=== PATIENT | male | born 1965 | race African-American/Black ===

== ENCOUNTER 2017-07-27 13:21 | Emergency (ER) | payer SELFPAY ==
[~2017-07-27] VITALS: Ht 170.2 cm; Wt 99.3 kg
[2017-07-27 13:28] VITALS: BP 137/92
--- NOTE | 2017-07-27 13:34 | NUR ---
PT ASKED FOR BLOOD SUGAR TO BE CHECKED---NON DIABETIC FINGER STICK AT THIS TIME 143; ADMITS HAD DRANK A GATORADE AND ATE 2 SLICES OF PIZZA
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
--- NOTE | 2017-07-27 15:38 | NUR ---
Patient being evaluated by DR HODGE at bedside.
[2017-07-27] MEDS ORDERED: NACL 0.9% 1,000 ML IV ONE (15:50)
[2017-07-27 16:34] LABS: BASOPHILS # (AUTO) 0.4 K/uL (0.00-0.22); EOSINOPHILS # (AUTO) 0.2 K/uL (0-0.4); HEMOGLOBIN 15.9 g/dL (12.0-18.0); LYMPHOCYTES # (AUTO) 3.2 K/uL (2.0-11.5); MEAN CORPUSCULAR HEMOGLOBIN 30 pg (27-31); MEAN CORPUSCULAR HGB CONC 34 g/dL (33-37); MEAN CORPUSCULAR VOLUME 87 fL (80-94); MONOCYTES # (AUTO) 0.8 K/uL (0.8-1.0); NEUTROPHILS # (AUTO) 2.8 K/uL (1.8-7.7); PLATELET COUNT (AUTO) 212 K/uL (140-450); RED BLOOD CELL COUNT(AUTO) 5.39 MIL/uL (4.20-6.10); RED CELL DISTRIBUTION WIDTH 11.2 % (11.6-13.7); WHITE BLOOD COUNT (AUTO) 7.4 K/uL (4.8-10.8)
[2017-07-27 17:05] LABS: ALBUMIN 3.9 g/dL (3.4-5.0); ANION GAP 12.9 (8-16); CREATININE 1.3 mg/dL (0.7-1.3); POTASSIUM 3.9 mmol/L (3.5-5.1); TOTAL BILIRUBIN 0.4 mg/dL (0.0-1.0)
[2017-07-27 17:53] VITALS: BP 143/96
--- NOTE | 2017-07-27 17:53 | NUR ---
Patient discharged with BP 143/96; DENIES HEADACHE AT THIS TIME. Written and verbal after care instructions given and explained. Patient verbalized understanding. Ambulatory with steady gait. All questions addressed prior to discharge. Advised to follow up with PMD.
== END 2017-07-27 17:53 | disposition home or self-care (01) ==
LOC: MED 13:21
DX: T88.1XXA Other complications following immunization, not elsewhere classified, initial encounter (principal); G62.9 Polyneuropathy, unspecified; R42 Dizziness and giddiness; I10 Essential (primary) hypertension; Y92.89 Other specified places as the place of occurrence of the external cause
CPT/HCPCS: 36415; 70450; 71045; 80053; 82948; 84484; 85025; 93005; 96360; 99285; J7030

== ENCOUNTER 2018-12-09 15:03 | Emergency (ER) | payer SELFPAY ==
[~2018-12-09] VITALS: Ht 175.3 cm; Wt 101.6 kg
--- NOTE | 2018-12-09 15:30 | NUR ---
PT PROVIDED URINE SAMPLE, AMBULATORY TO SOPHIA POPE.
[2018-12-09 15:32] VITALS: BP 148/90
--- NOTE | 2018-12-09 16:05 | NUR ---
Patient ambulated to bed 10. RN evaluating patient at bedside.
--- NOTE | 2018-12-09 16:30 | NUR ---
C/O R ELBOW PAIN STARTING TODAY. PT DENIES N/V/FEVER, RECENT INJURY, ITCHINESS, ETC. PT STATES HE WOKE UP THIS MORNING AND NOTICED THE BUMP ON HIS ARM. BED IN LOW POSITION, SIDE RAIL UP X 1.
[2018-12-09] MEDS ORDERED: KETOROLAC 60 MG/2 ML VIAL IM ONE (18:40)
[2018-12-09 19:14] VITALS: BP 140/85
--- NOTE | 2018-12-09 19:15 | NUR ---
Patient discharged with v/s stable. Written and verbal after care instructions given and explained. Patient alert, oriented and verbalized understanding of instructions. Ambulatory with steady gait. All questions addressed prior to discharge. ID band removed. Patient advised to follow up with PMD. Rx of NORCO & IBUPROFEN given. Patient educated on indication of medication including possible reaction and side effects. Opportunity to ask questions provided and answered.
== END 2018-12-09 19:15 | disposition home or self-care (01) ==
LOC: MED 15:03
DX: M79.601 Pain in right arm (principal); I10 Essential (primary) hypertension
CPT/HCPCS: 81002; 96372; 99283; J1885

== ENCOUNTER 2021-07-19 12:58 | Inpatient (IN) | payer MEDICAID, SELFPAY ==
[~2021-07-19] VITALS: Ht 175.3 cm; Wt 103.0 kg
[2021-07-19 13:09] VITALS: BP 137/108
--- NOTE | 2021-07-19 13:13 | NUR ---
PT SENT TO LOBBY
[2021-07-19 14:38] LABS: BASOPHILS % (AUTO) 0.6 % (0.0-2.0); EOSINOPHILS # (AUTO) 0.1 K/uL (0-0.4); EOSINOPHILS % (AUTO) 1.1 % (0.0-4.0); HEMATOCRIT 41.4 % (36-52); HEMOGLOBIN 14.5 g/dL (12.0-18.0); LYMPHOCYTES % (AUTO) 46.1 % (20.5-51.1); MEAN CORPUSCULAR HEMOGLOBIN 31 pg (27-31); MEAN CORPUSCULAR HGB CONC 35 g/dL (33-37); MEAN CORPUSCULAR VOLUME 88.2 fL (80-94); MONOCYTES # (AUTO) 0.5 K/uL (0.8-1.0); MONOCYTES % (AUTO) 8.1 % (1.7-9.3); NEUTROPHILS # (AUTO) 2.8 K/uL (1.8-7.7); NEUTROPHILS % (AUTO) 44.1 % (42.2-75.2); PLATELET COUNT (AUTO) 225 K/uL (140-450); RED CELL DISTRIBUTION WIDTH 12.8 % (11.6-13.7); WHITE BLOOD COUNT (AUTO) 6.4 K/uL (4.8-10.8)
[2021-07-19 15:14] LABS: ALBUMIN 4.4 g/dL (3.4-5.0); ANION GAP 14.7 (8-16); CARBON DIOXIDE 28.8 mmol/L (21-32); CREATININE 1.3 mg/dL (0.6-1.3); POTASSIUM 3.5 mmol/L (3.5-5.1); TOTAL BILIRUBIN 0.5 mg/dL (0.0-1.0)
--- NOTE | 2021-07-19 18:37 | NUR ---
PT TAKEN TO [facility].
--- NOTE | 2021-07-19 18:53 | NUR ---
20 G IV ESTABLISHED TO R AC. CONSENT SIGNED FOR CT SCAN. TECH MADE AWARE
--- NOTE | 2021-07-19 19:41 | NUR ---
REPORT GIVEN TO HEYDI SCHILLING, TRANSFER OF CARE AT THIS TIME.
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
[2021-07-19] MEDS: NACL 0.9% 1,000 ML IV SCH (23:41)
[2021-07-19] MEDS: PANTOPRAZOLE 40 MG INJ VIAL IVP SCH (23:42)
--- NOTE | 2021-07-20 01:00 | NUR ---
RESTING IN BED WITH EYES CLOSED. RESPIRATIONS REGULAR AND UNLABORED
--- NOTE | 2021-07-20 05:00 | NUR ---
CONTINUES TO REST QUIETLY. HAS BEEN VOIDING PER URINAL.
--- NOTE | 2021-07-20 07:18 | NUR ---
PATIENT HAS BEEN SCREENED AND CATEGORIZED MODERATE NUTRITION RISK. PATIENT WILL BE SEEN WITHIN 3-5 DAYS OF ADMISSION. 07/23/21-07/25/21 JAN ORTIZ MS, RDN
--- NOTE | 2021-07-20 07:30 | NUR ---
REPORT RECEIVED FROM TONIE KINSEY FOR PATIENT CONTINUITY OF CARE.
--- NOTE | 2021-07-20 07:40 | NUR ---
DR CASTILLO EVALUATING PATIENT AT BEDSIDE
[2021-07-20] MEDS: NACL 0.9% 1,000 ML IV SCH ×3 (07:50→22:50)
--- NOTE | 2021-07-20 08:00 | NUR ---
LAB AT PATIENT BEDSIDE
--- NOTE | 2021-07-20 08:03 | NUR ---
PATIENT GIVEN GOWN AND CLEAN BLANKET, CONNECTED TO BEDSIDE MONITOR.
[2021-07-20 08:34] LABS: BASOPHILS % (AUTO) 0.4 % (0.0-2.0); EOSINOPHILS # (AUTO) 0.1 K/uL (0-0.4); EOSINOPHILS % (AUTO) 1.7 % (0.0-4.0); HEMATOCRIT 39.5 % (36-52); HEMOGLOBIN 13.7 g/dL (12.0-18.0); LYMPHOCYTES # (AUTO) 2.5 K/uL (2.0-11.5); LYMPHOCYTES % (AUTO) 48.8 % (20.5-51.1); MEAN CORPUSCULAR HEMOGLOBIN 31 pg (27-31); MEAN CORPUSCULAR HGB CONC 35 g/dL (33-37); MEAN CORPUSCULAR VOLUME 88.4 fL (80-94); MONOCYTES # (AUTO) 0.5 K/uL (0.8-1.0); MONOCYTES % (AUTO) 8.9 % (1.7-9.3); NEUTROPHILS # (AUTO) 2.1 K/uL (1.8-7.7); NEUTROPHILS % (AUTO) 40.2 % (42.2-75.2); PLATELET COUNT (AUTO) 209 K/uL (140-450); RED BLOOD CELL COUNT(AUTO) 4.47 MIL/uL (4.20-6.10); RED CELL DISTRIBUTION WIDTH 12.8 % (11.6-13.7); WHITE BLOOD COUNT (AUTO) 5.2 K/uL (4.8-10.8)
--- NOTE | 2021-07-20 08:46 | NUR ---
PATIENT REQUESTING BREAKFAST, INFORMED OF NPO STATUS. BREAKFAST NOT GIVEN AT THIS TIME.
[2021-07-20 08:51] LABS: ANION GAP 12.6 (8-16); CARBON DIOXIDE 28.1 mmol/L (21-32); CREATININE 1.1 mg/dL (0.6-1.3); POTASSIUM 3.7 mmol/L (3.5-5.1)
--- NOTE | 2021-07-20 08:55 | NUR ---
VERBAL CONSENT FROM PATIENT RECEIVED TO SPEAK TO DAUGHTER CHIO FOR AN UPDATE.
[2021-07-20] MEDS: SENNA 8.6 MG TAB PO SCH ×3 (09:48→17:00)
[2021-07-20] MEDS: POLYETHYLENE GLYCOL 17 GM/PKT PO SCH ×4 (09:48→21:00)
[2021-07-20] MEDS: PANTOPRAZOLE 40 MG INJ VIAL IVP SCH ×2 (09:53→21:00)
--- NOTE | 2021-07-20 10:27 | NUR ---
PATIENT RESTING IN BED. NO DISTRESS NOTED, VSS, RESPIRATIONS EVEN AND UNLABORED. SAFETY PRECAUTIONS PUT INTO PLACE, WILL CONTINUE TO MONITOR.
--- NOTE | 2021-07-20 11:31 | NUR ---
DR. LACY EVALUATING PATIENT AT BEDSIDE
[2021-07-20] MEDS ORDERED: HYDROcodone/APAP 5/325 MG 1 TAB TAB PO PRN (12:15)
[2021-07-20] MEDS ORDERED: ONDANSETRON 4 MG/2 ML VIAL IM/IVP PRN (12:15)
[2021-07-20] MEDS ORDERED: ACETAMINOPHEN 325 MG TAB PO PRN (12:15)
[2021-07-20] MEDS ORDERED: POTASSIUM CHLORIDE 10 MEQ TABER PO PRN (12:15)
[2021-07-20] MEDS ORDERED: LORazepam 2 MG/ML VIAL IM/IVP PRN (12:15)
[2021-07-20] MEDS ORDERED: ZOLPIDEM 5 MG TAB PO PRN (12:15)
[2021-07-20] MEDS ORDERED: MORPHINE SULFATE 2 MG/ML SYR IVP PRN (12:15)
[2021-07-20] MEDS ORDERED: DOCUSATE SODIUM 100 MG GELCAP PO PRN (12:15)
[2021-07-20] MEDS ORDERED: MAG SULF 2000 MG/WATER PREMIX 50 ML IV PRN (12:15)
[2021-07-20] MEDS: LACTULOSE 20 GM/30 ML UDC PO SCH ×2 (12:45→18:00)
--- NOTE | 2021-07-20 12:49 | NUR ---
PATIENT AMBULATED TO RESTROOM WITH STEADY GAIT.
--- NOTE | 2021-07-20 12:55 | NUR ---
PATIENT AMBULATED WITH STEADY GAIT TO ROOM, PATIENT REPORTS UNABLE TO PASS A BM AT THIS TIME.
--- NOTE | 2021-07-20 13:10 | NUR ---
EMT SHAVING PATIENT'S CHEST HAIR, AUTO JOB ESTIMATOR LEADS UNABLE TO STICK TO PATIENT. RECONNECTED TO BEDSIDE MONITOR
[2021-07-20] MEDS ORDERED: SUPREP BOWEL PREP KIT 354 ML SOLN.RECON PO SCH (14:00)
[2021-07-20] MEDS ORDERED: SUPREP BOWEL PREP KIT 354 ML SOLN.RECON PO ONE (14:00)
--- NOTE | 2021-07-20 15:44 | NUR ---
LAB AT PATIENT BEDSIDE
--- NOTE | 2021-07-20 16:10 | NUR ---
PATIENT AMBULATED TO RESTROOM WITH STEADY GAIT.
[2021-07-20 16:14] LABS: PROTHROMBIN TIME 10.4 secs (10.8-13.4)
[2021-07-20 16:27] LABS: CHOL/HDL RATIO 5.5 (1-4.5); MAGNESIUM 2.1 mg/dL (1.8-2.4); PHOSPHORUS 3.4 mg/dL (2.5-4.9); THYROID STIMULATING HORMONE 0.71 uIU/mL (0.34-3.74)
--- NOTE | 2021-07-20 18:40 | NUR ---
Patient will be admitted to care of DR. LACY. Admited to TELEMETRY. Will go to room 111A. Belongings list completed. Report to TONIE ESTRADA.
--- NOTE | 2021-07-20 18:45 | NUR ---
PATIENT ARRIVED FROM ER. ABLE TO AMBULATE. AAOX4, CALM, COOPERATIVE, ON ROOM AIR. IV SITE INTACT, PATENT. REVIEWED PLAN OF CARE WITH PATIENT. VERBALIZED UNDERSTANDING. SAFETY MEASURES IN PLACE, CALL LIGHT WITHIN REACH. WILL CONTINUE TO MONITOR.
--- NOTE | 2021-07-20 19:14 | NUR ---
GAVE REPORT TO SUMAC TANNER NURSE FOR CONTINUITY OF CARE. PATIENT IN STABLE CONDITION.
[2021-07-21] MEDS: LACTULOSE 20 GM/30 ML UDC PO SCH ×3 (00:56→12:00)
[2021-07-21] MEDS: NACL 0.9% 1,000 ML IV SCH ×2 (06:34→14:35)
[2021-07-21 07:29] LABS: ANION GAP 12.3 (8-16); CARBON DIOXIDE 30.6 mmol/L (21-32); CREATININE 1.2 mg/dL (0.6-1.3); POTASSIUM 3.9 mmol/L (3.5-5.1)
--- NOTE | 2021-07-21 07:30 | NUR ---
RECEIVED REPORT FROM DOMESTIC TRAVEL CONSULTANT NURSE FOR CONTINUITY OF CARE, POC DISCUSSED. PT IS ASLEEP IN BED WITH NO ACUTE S/S OF DISTRESS. PT HAS A RIGHT AC 20G RUNNING 120. PT HAS COMPLETED BOWEL PREP, DOMESTIC TRAVEL CONSULTANT REPORTS CLEAR LIQUID STOOL. PT ON ROOM AIR ON TELE MONITOR. ALL SAFETY MEASURES IN PLACE, CALL LIGHT WITHIN REACH, WILL CONTINUE TO MONITOR.
[2021-07-21 07:31] LABS: BASOPHILS % (AUTO) 0.6 % (0.0-2.0); EOSINOPHILS # (AUTO) 0.1 K/uL (0-0.4); EOSINOPHILS % (AUTO) 1.3 % (0.0-4.0); HEMOGLOBIN 12.8 g/dL (12.0-18.0); LYMPHOCYTES # (AUTO) 2.7 K/uL (2.0-11.5); MEAN CORPUSCULAR HEMOGLOBIN 31 pg (27-31); MEAN CORPUSCULAR HGB CONC 35 g/dL (33-37); MEAN CORPUSCULAR VOLUME 88.9 fL (80-94); MONOCYTES # (AUTO) 0.4 K/uL (0.8-1.0); MONOCYTES % (AUTO) 8.4 % (1.7-9.3); NEUTROPHILS % (AUTO) 38.7 % (42.2-75.2); PLATELET COUNT (AUTO) 205 K/uL (140-450); RED BLOOD CELL COUNT(AUTO) 4.16 MIL/uL (4.20-6.10); RED CELL DISTRIBUTION WIDTH 12.6 % (11.6-13.7); WHITE BLOOD COUNT (AUTO) 5.3 K/uL (4.8-10.8)
[2021-07-21 07:42] LABS: MAGNESIUM 2.1 mg/dL (1.8-2.4); PHOSPHORUS 3.8 mg/dL (2.5-4.9)
[2021-07-21 08:00] VITALS: BP 117/80
[2021-07-21] MEDS: SENNA 8.6 MG TAB PO SCH ×2 (09:12→13:45)
[2021-07-21] MEDS: POLYETHYLENE GLYCOL 17 GM/PKT PO SCH ×2 (09:12→13:45)
[2021-07-21] MEDS: PANTOPRAZOLE 40 MG INJ VIAL IVP SCH (09:13)
[2021-07-21] MEDS ORDERED: DOCU-299 PO (10:28)
[2021-07-21] MEDS ORDERED: PANT40EC PO (10:28)
[2021-07-21] MEDS ORDERED: fentaNYL citrate 0.05 MG/ML VIAL ONE (11:23)
[2021-07-21] MEDS ORDERED: MIDAZOLAM 5 MG/5 ML VIAL ONE (11:23)
[2021-07-21 12:00] VITALS: BP 133/91
--- NOTE | 2021-07-21 14:25 | NUR ---
PT REPORTS MULTIPLE BMS WITH CLEAR LIQUID STOOL. PT TAKEN TO THE OR IN STABLE CONDITION. PT CONSENT HAS BEEN OBTAINED BY DR HARDING
[2021-07-21] MEDS: fentaNYL citrate 0.05 MG/ML VIAL IVP ONE ×2 (14:36→15:49)
--- NOTE | 2021-07-21 15:15 | NUR ---
PT RETURNED IN STABLE CONDITION FROM THE OR
[2021-07-21] MEDS ORDERED: MIDAZOLAM 2 MG/2 ML VIAL IVP ONE (15:45)
--- NOTE | 2021-07-21 16:50 | NUR ---
POST OP VITAL SIGNS COMPLETED. PT VITAL SIGNS REMAINED STABLE WITH NO ACUTE S/S OF DISTRESS. PT STATES HE IS READY TO GO HOME, PT IS DRESSED AND HAS ALL HIS BELONGINGS TOGETHER. DISCHARGE INSTRUCTIONS GONE OVER WITH PT. PT VERBALIZED UNDERSTANDING AND SIGNED PAPERWORK, IV REMOVED CATH IN PLACE. ID BAND REMOVED. PT CALLED SON AND STATED HE WANTS TO WAIT OUTSIDE. PT WALKED TO FRONT LOBBY WITH BELONGINGS AND IS STABLE.
== END 2021-07-21 16:55 | disposition home or self-care (01) | DRG 254 ==
LOC: MED 12:58 → MTU 21:02
PROC: 0DJD8ZZ Inspection of Lower Intestinal Tract, Via Natural or Artificial Opening Endoscopic (ICD-10-PCS; principal; 2021-07-21 12:45)
DX: K64.8 Other hemorrhoids (principal); E66.9 Obesity, unspecified; E86.0 Dehydration; Z20.822 Contact with and (suspected) exposure to COVID-19; I10 Essential (primary) hypertension; K59.00 Constipation, unspecified; Z68.33 Body mass index [BMI] 33.0-33.9, adult
CPT/HCPCS: 36415; 80048; 80053; 82150; 83036; 83690; 83735; 83880; 84100; 84134; 84443; 85025; 85610; 85730; 86886; 86900; 86901; 99285; C9113; J2250; J3010; J7030; Q9967

== ENCOUNTER 2021-10-11 05:04 | Emergency (ER) | payer MEDICAID ==
[~2021-10-11] VITALS: Ht 175.3 cm; Wt 97.1 kg
[~2021-10-11 05:04] MED LIST: DOCU-299 PO; PANT40EC PO
[2021-10-11 05:06] VITALS: BP 147/92
[2021-10-11] MEDS: MECLIZINE 25 MG TAB PO ONE (05:40)
[2021-10-11 06:55] LABS: ANION GAP 14.1 (8-16); CARBON DIOXIDE 25.5 mmol/L (21-32); CREATININE 1.2 mg/dL (0.6-1.3); POTASSIUM 3.6 mmol/L (3.5-5.1)
[2021-10-11 07:11] LABS: BASOPHILS # (AUTO) 0.1 K/uL (0.00-0.22); BASOPHILS % (AUTO) 1.3 % (0.0-2.0); EOSINOPHILS # (AUTO) 0.2 K/uL (0-0.4); HEMATOCRIT 48.4 % (36-52); HEMOGLOBIN 16.5 g/dL (12.0-18.0); LYMPHOCYTES # (AUTO) 2.3 K/uL (2.0-11.5); MEAN CORPUSCULAR HEMOGLOBIN 30 pg (27-31); MEAN CORPUSCULAR HGB CONC 34 g/dL (33-37); MEAN CORPUSCULAR VOLUME 87.2 fL (80-94); MONOCYTES # (AUTO) 0.4 K/uL (0.8-1.0); MONOCYTES % (AUTO) 8.4 % (1.7-9.3); NEUTROPHILS # (AUTO) 1.4 K/uL (1.8-7.7); PLATELET COUNT (AUTO) 230 K/uL (140-450); RED BLOOD CELL COUNT(AUTO) 5.56 MIL/uL (4.20-6.10); RED CELL DISTRIBUTION WIDTH 12.4 % (11.6-13.7); WHITE BLOOD COUNT (AUTO) 4.3 K/uL (4.8-10.8)
[2021-10-11 07:15] LABS: LYMPHOCYTES % (AUTO) 53.3 % (20.5-51.1)
[2021-10-11] MEDS ORDERED: METO-486 PO (07:52)
[2021-10-11] MEDS ORDERED: IBUP-2213 PO (07:53)
[2021-10-11 08:03] VITALS: BP 134/101
== END 2021-10-11 08:03 | disposition home or self-care (01) ==
LOC: MED 05:04
DX: R42 Dizziness and giddiness (principal); R51.9 Headache, unspecified; I10 Essential (primary) hypertension; E78.5 Hyperlipidemia, unspecified; G43.909 Migraine, unspecified, not intractable, without status migrainosus; Z79.899 Other long term (current) drug therapy
CPT/HCPCS: 36415; 70450; 80048; 84484; 85025; 93005; 99285; J8597

== ENCOUNTER 2022-01-05 12:08 | Emergency (ER) | payer MEDICAID ==
[~2022-01-05] VITALS: Ht 175.3 cm; Wt 92.6 kg
[~2022-01-05 12:08] MED LIST changes: +ASPI-1822 PO; +ATOR20TA PO; -DOCU-299 PO; -PANT40EC PO
[2022-01-05 12:21] VITALS: BP 127/87
--- NOTE | 2022-01-05 12:25 | NUR ---
PT AMB TO ER 12
--- NOTE | 2022-01-05 12:30 | NUR ---
56 y/o M BIB self from [facility] referral for dehydration. Patient A&Ox4, ambulatory, c/o dizziness, 5/10 headache, and weakness after being exposed to sun from [id number] yesterday. Pt states symptoms presented at 2000 last night. Pt states dizziness worsens with positional changes. Denies chest pain, SOB, fever, chills, n/v/d, dysuria. Denies meds prior to arrival. traffic monitor specialist in place with VSS. Bed locked in lowest position, side rails x 1. PMH: HTN Meds: unable to recall NKDA Sx: denies
[2022-01-05] MEDS ORDERED: NACL 0.9% 1,000 ML IV ONE (13:45)
--- NOTE | 2022-01-05 13:58 | NUR ---
RAD at bedside
--- NOTE | 2022-01-05 14:06 | NUR ---
Blood and urine handed to CPT Lore in lab.
[2022-01-05 14:16] VITALS: BP 123/83
[2022-01-05 14:24] LABS: BASOPHILS % (AUTO) 0.6 % (0.0-2.0); EOSINOPHILS # (AUTO) 0.1 K/uL (0-0.4); EOSINOPHILS % (AUTO) 1.5 % (0.0-4.0); HEMATOCRIT 40.7 % (36-52); HEMOGLOBIN 13.9 g/dL (12.0-18.0); LYMPHOCYTES # (AUTO) 2.6 K/uL (2.0-11.5); LYMPHOCYTES % (AUTO) 57.5 % (20.5-51.1); MEAN CORPUSCULAR HEMOGLOBIN 30 pg (27-31); MEAN CORPUSCULAR HGB CONC 34 g/dL (33-37); MONOCYTES # (AUTO) 0.4 K/uL (0.8-1.0); NEUTROPHILS # (AUTO) 1.5 K/uL (1.8-7.7); NEUTROPHILS % (AUTO) 32.4 % (42.2-75.2); PLATELET COUNT (AUTO) 192 K/uL (140-450); RED BLOOD CELL COUNT(AUTO) 4.68 MIL/uL (4.20-6.10); WHITE BLOOD COUNT (AUTO) 4.5 K/uL (4.8-10.8)
[2022-01-05 15:16] LABS: ALBUMIN 3.9 g/dL (3.4-5.0); ANION GAP 10.5 (8-16); ASPARTATE AMINOTRANSFERASE 26 U/L (15-37); CARBON DIOXIDE 29.4 mmol/L (21-32); CHLORIDE 107 mmol/L (98-107); GFR ARICAN-AMERICAN 99 mL/min (>90); GLUCOSE 82 mg/dL (74-106); POTASSIUM 3.9 mmol/L (3.5-5.1); SODIUM SERUM 143 mmol/L (136-145); TOTAL BILIRUBIN 0.5 mg/dL (0.0-1.0); UREA NITROGEN, BLOOD 9 mg/dL (7-18)
--- NOTE | 2022-01-05 15:38 | NUR ---
Patient states he feels 100%. Dr. Connolly made aware. Patient made aware of pending UA results.
[2022-01-05 16:21] LABS: APPEARANCE,URINE CLEAR (CLEAR); BILIRUBIN,URINE NEGATIVE (NEGATIVE); BLOOD, URINE NEGATIVE (NEGATIVE); COLOR,URINE YELLOW (YELLOW); LEUKOCYTE ESTERASE ,URINE NEGATIVE (NEGATIVE); NITRITE, URINE NEGATIVE (NEGATIVE); UGLUCOSE NEGATIVE (NEGATIVE)
--- NOTE | 2022-01-05 16:45 | NUR ---
IV removed, catheter intact and site benign. Applied folded 4x4 gauze and tape to stop bleeding.
--- NOTE | 2022-01-05 16:47 | NUR ---
Patient discharged with v/s stable. Written and verbal after care instructions given and explained. Patient verbalized understanding. Ambulatory with steady gait. All questions addressed prior to discharge. Advised to follow up with PMD.
== END 2022-01-05 16:47 | disposition home or self-care (01) ==
LOC: MED 12:08
DX: R53.1 Weakness (principal); R42 Dizziness and giddiness; R11.0 Nausea; I10 Essential (primary) hypertension
CPT/HCPCS: 36415; 71045; 80053; 81003; 84484; 85025; 93005; 96360; 99285; J7030

== ENCOUNTER 2023-08-19 17:03 | Emergency (ER) | payer MEDICAID ==
[~2023-08-19] VITALS: Ht 175.3 cm; Wt 97.5 kg
[2023-08-19 17:21] VITALS: BP 148/92; PULSE 80; RESP 18; TEMP 98.3; O2SAT 98
[2023-08-19 17:51] LABS: BASOPHILS # (AUTO) 0.1 K/uL (0.00-0.22); BASOPHILS % (AUTO) 1.4 % (0.0-2.0); EOSINOPHILS # (AUTO) 0.1 K/uL (0-0.4); EOSINOPHILS % (AUTO) 1.2 % (0.0-4.0); HEMATOCRIT 44.9 % (36-52); HEMOGLOBIN 15.5 g/dL (12.0-18.0); LYMPHOCYTES # (AUTO) 3.3 K/uL (2.0-11.5); LYMPHOCYTES % (AUTO) 52.8 % (20.5-51.1); MEAN CORPUSCULAR HEMOGLOBIN 31 pg (27-31); MEAN CORPUSCULAR HGB CONC 35 g/dL (33-37); MEAN CORPUSCULAR VOLUME 89.5 fL (80-94); MONOCYTES # (AUTO) 0.5 K/uL (0.8-1.0); MONOCYTES % (AUTO) 8.7 % (1.7-9.3); NEUTROPHILS # (AUTO) 2.3 K/uL (1.8-7.7); NEUTROPHILS % (AUTO) 35.9 % (42.2-75.2); PLATELET COUNT (AUTO) 203 K/uL (140-450); RED BLOOD CELL COUNT(AUTO) 5.02 MIL/uL (4.20-6.10); RED CELL DISTRIBUTION WIDTH 13.4 % (11.6-13.7); WHITE BLOOD COUNT (AUTO) 6.3 K/uL (4.8-10.8)
[2023-08-19 18:04] LABS: INR 0.97 (0.8-1.2); PARTIAL THROMBOPLASTIN TIME 28.2 secs (22-35.6); PROTHROMBIN TIME 10.2 secs (10.8-13.4)
[2023-08-19 18:28] LABS: ANION GAP 12.8 (8-16); CARBON DIOXIDE 30.2 mmol/L (21-32); CREATININE 1.3 mg/dL (0.6-1.3)
[2023-08-19] MEDS: KETOROLAC 30 MG/ML VIAL IVP ONE (19:56)
[2023-08-19] MEDS: ACETAMINOPHEN EXTRA STRENGTH 500 MG TAB PO ONE (19:57)
[2023-08-19 21:50] VITALS: BP 140/97; PULSE 88; RESP 18; O2SAT 95
== END 2023-08-19 21:50 | disposition home or self-care (01) ==
LOC: MED 17:03
DX: R07.9 Chest pain, unspecified (principal); R10.31 Right lower quadrant pain; M79.18 Myalgia, other site; I10 Essential (primary) hypertension; Z79.899 Other long term (current) drug therapy; Z79.82 Long term (current) use of aspirin
CPT/HCPCS: 36415; 71045; 80048; 83880; 84484; 85025; 85610; 85730; 96374; 99285; J1885

== ENCOUNTER 2023-08-31 16:59 | Emergency (ER) | payer MEDICAID ==
[~2023-08-31] VITALS: Ht 175.3 cm; Wt 77.1 kg
[2023-08-31 17:59] VITALS: BP 146/99; PULSE 95; RESP 18; TEMP 98; O2SAT 98
[2023-08-31 20:06] LABS: BASOPHILS # (AUTO) 0.1 K/uL (0.00-0.22); EOSINOPHILS # (AUTO) 0.1 K/uL (0-0.4); EOSINOPHILS % (AUTO) 0.9 % (0.0-4.0); HEMATOCRIT 47.9 % (36-52); HEMOGLOBIN 16.8 g/dL (12.0-18.0); LYMPHOCYTES % (AUTO) 48.2 % (20.5-51.1); MEAN CORPUSCULAR HEMOGLOBIN 31 pg (27-31); MEAN CORPUSCULAR HGB CONC 35 g/dL (33-37); MEAN CORPUSCULAR VOLUME 89.1 fL (80-94); MONOCYTES # (AUTO) 0.5 K/uL (0.8-1.0); MONOCYTES % (AUTO) 7.4 % (1.7-9.3); NEUTROPHILS # (AUTO) 2.6 K/uL (1.8-7.7); NEUTROPHILS % (AUTO) 42.5 % (42.2-75.2); PLATELET COUNT (AUTO) 227 K/uL (140-450); RED BLOOD CELL COUNT(AUTO) 5.38 MIL/uL (4.20-6.10); RED CELL DISTRIBUTION WIDTH 13.2 % (11.6-13.7); WHITE BLOOD COUNT (AUTO) 6.2 K/uL (4.8-10.8)
[2023-08-31 20:18] LABS: ALANINE AMINOTRANSFERASE 38 U/L (12-78); ALBUMIN 4.6 g/dL (3.4-5.0); ALKALINE PHOSPHATASE 41 U/L (50-136); ANION GAP 11.4 (8-16); ASPARTATE AMINOTRANSFERASE 34 U/L (15-37); CALCIUM 9.5 mg/dL (8.5-10.1); CHLORIDE 98 mmol/L (98-107); CREATININE 1.1 mg/dL (0.6-1.3); GFR ARICAN-AMERICAN 88 mL/min (>90); GFR NON ARICAN-AMERICAN 73 mL/min (>90); GLUCOSE 95 mg/dL (74-106); POTASSIUM 3.4 mmol/L (3.5-5.1); SODIUM SERUM 137 mmol/L (136-145); TOTAL BILIRUBIN 0.8 mg/dL (0.0-1.0); TOTAL PROTEIN, SERUM 9.8 g/dL (6.4-8.2); UREA NITROGEN, BLOOD 9 mg/dL (7-18)
[2023-08-31 20:19] LABS: ALCOHOL, BLOOD < 3 mg/dL (<10)
[2023-08-31] MEDS: MAG SULF 2000 MG/WATER PREMIX 50 ML IV ONE (21:01)
[2023-08-31] MEDS: diphenhydrAMINE 50 MG/ML VIAL IVP ONE (21:04)
[2023-08-31] MEDS: METOCLOPRAMIDE 10 MG/2 ML INJ VIAL IVP ONE (21:04)
[2023-08-31] MEDS: DEXAMETHASONE 10 MG/ML VIAL IVP ONE (21:08)
[2023-08-31 21:15] VITALS: TEMP 98
[2023-08-31] MEDS ORDERED: ACET-10509 PO (21:55)
[2023-08-31] MEDS ORDERED: AMLO5TAB PO (21:57)
[2023-08-31] MEDS ORDERED: MECL-303 PO (21:57)
[2023-08-31 22:36] VITALS: BP 101/50; PULSE 91; RESP 16; O2SAT 100
== END 2023-08-31 22:36 | disposition home or self-care (01) ==
LOC: MED 16:59
DX: I16.0 Hypertensive urgency (principal); H81.11 Benign paroxysmal vertigo, right ear; R51.9 Headache, unspecified; Z79.899 Other long term (current) drug therapy
CPT/HCPCS: 36415; 70450; 71045; 80053; 84484; 85025; 93005; 96365; 96366; 96375; 99285; G0482; J1100; J1200; J2765; J3475

== ENCOUNTER 2023-09-03 17:52 | Emergency (ER) | payer MEDICAID ==
[~2023-09-03] VITALS: Ht 175.3 cm; Wt 97.1 kg
[~2023-09-03 17:52] MED LIST changes: +ACET-10509 PO; +AMLO5TAB PO; +MECL-303 PO
[2023-09-03 18:00] VITALS: BP 154/93; PULSE 92; RESP 18; TEMP 98.3; O2SAT 97
[2023-09-03] MEDS: diazePAM 5 MG TAB PO ONE (19:54)
[2023-09-03 21:45] VITALS: O2SAT 97
[2023-09-03 21:56] LABS: BASOPHILS # (AUTO) 0.1 K/uL (0.00-0.22); BASOPHILS % (AUTO) 0.8 % (0.0-2.0); EOSINOPHILS # (AUTO) 0.1 K/uL (0-0.4); EOSINOPHILS % (AUTO) 1.7 % (0.0-4.0); HEMOGLOBIN 15.7 g/dL (12.0-18.0); LYMPHOCYTES # (AUTO) 3.9 K/uL (2.0-11.5); LYMPHOCYTES % (AUTO) 60.7 % (20.5-51.1); MEAN CORPUSCULAR HEMOGLOBIN 31 pg (27-31); MEAN CORPUSCULAR HGB CONC 36 g/dL (33-37); MONOCYTES # (AUTO) 0.6 K/uL (0.8-1.0); NEUTROPHILS # (AUTO) 1.8 K/uL (1.8-7.7); NEUTROPHILS % (AUTO) 27.8 % (42.2-75.2); PLATELET COUNT (AUTO) 215 K/uL (140-450); RED CELL DISTRIBUTION WIDTH 13.1 % (11.6-13.7); WHITE BLOOD COUNT (AUTO) 6.5 K/uL (4.8-10.8)
[2023-09-03 22:13] LABS: ANION GAP 12.7 (8-16); CALCIUM 8.3 mg/dL (8.5-10.1); CARBON DIOXIDE 29.9 mmol/L (21-32); CREATININE 1.1 mg/dL (0.6-1.3); POTASSIUM 3.6 mmol/L (3.5-5.1)
[2023-09-03] MEDS: ACETAMINOPHEN 325 MG TAB PO ONE (22:18)
[2023-09-03] MEDS: KETOROLAC 30 MG/ML VIAL IM ONE (22:19)
[2023-09-03 22:20] LABS: ALANINE AMINOTRANSFERASE 40 U/L (12-78); ALBUMIN 3.7 g/dL (3.4-5.0); ALKALINE PHOSPHATASE 42 U/L (50-136); ASPARTATE AMINOTRANSFERASE 34 U/L (15-37); BILIRUBIN,DIRECT 0.1 mg/dL (0.0-0.3); TOTAL BILIRUBIN 0.3 mg/dL (0.0-1.0)
== END 2023-09-03 22:58 | disposition home or self-care (01) ==
LOC: MED 17:52
DX: R42 Dizziness and giddiness (principal); I10 Essential (primary) hypertension; Z79.899 Other long term (current) drug therapy; Z79.82 Long term (current) use of aspirin
CPT/HCPCS: 36415; 80048; 80076; 84484; 85025; 93005; 96372; 99284; J1885

== ENCOUNTER 2023-09-06 11:31 | Emergency (ER) | payer MEDICAID ==
[~2023-09-06] VITALS: Ht 175.3 cm; Wt 97.1 kg
[2023-09-06 12:18] VITALS: BP 144/95; PULSE 90; RESP 18; TEMP 98.2; O2SAT 97
[2023-09-06 12:49] VITALS: BP 140/87; PULSE 78; RESP 18; TEMP 98.2; O2SAT 99
== END 2023-09-06 12:49 | disposition home or self-care (01) ==
LOC: MED 11:31
DX: I10 Essential (primary) hypertension (principal); Z79.899 Other long term (current) drug therapy; Z79.82 Long term (current) use of aspirin
CPT/HCPCS: 99281

== ENCOUNTER 2024-02-27 18:38 | Emergency (ER) | payer MEDICAID ==
[~2024-02-27] VITALS: Ht 175.3 cm; Wt 77.1 kg
[~2024-02-27 18:38] MED LIST changes: -ACET-10509 PO; +ACET500T99 PO
[2024-02-27 18:45] VITALS: BP 142/94; PULSE 84; RESP 20; TEMP 98.2; O2SAT 98
[2024-02-27] MEDS: NACL 0.9% 1,000 ML IV ONE (19:12)
[2024-02-27 19:18] LABS: BASOPHILS # (AUTO) 0.1 K/uL (0.00-0.22); BASOPHILS % (AUTO) 0.9 % (0.0-2.0); EOSINOPHILS # (AUTO) 0.1 K/uL (0-0.4); EOSINOPHILS % (AUTO) 1.4 % (0.0-4.0); HEMATOCRIT 42.9 % (36-52); HEMOGLOBIN 14.6 g/dL (12.0-18.0); LYMPHOCYTES # (AUTO) 2.7 K/uL (2.0-11.5); LYMPHOCYTES % (AUTO) 46.2 % (20.5-51.1); MEAN CORPUSCULAR HEMOGLOBIN 30 pg (27-31); MEAN CORPUSCULAR HGB CONC 34 g/dL (33-37); MEAN CORPUSCULAR VOLUME 88.7 fL (80-94); MONOCYTES # (AUTO) 0.5 K/uL (0.8-1.0); MONOCYTES % (AUTO) 9.2 % (1.7-9.3); NEUTROPHILS # (AUTO) 2.5 K/uL (1.8-7.7); NEUTROPHILS % (AUTO) 42.3 % (42.2-75.2); PLATELET COUNT (AUTO) 201 K/uL (140-450); RED BLOOD CELL COUNT(AUTO) 4.83 MIL/uL (4.20-6.10); RED CELL DISTRIBUTION WIDTH 12.6 % (11.6-13.7); WHITE BLOOD COUNT (AUTO) 5.8 K/uL (4.8-10.8)
[2024-02-27 19:31] LABS: ANION GAP 12.8 (8-16); CALCIUM 8.1 mg/dL (8.5-10.1); CARBON DIOXIDE 29.6 mmol/L (21-32); CREATININE 1.2 mg/dL (0.6-1.3); POTASSIUM 3.4 mmol/L (3.5-5.1)
[2024-02-27 19:36] LABS: INR 0.96 (0.8-1.2); PARTIAL THROMBOPLASTIN TIME 25.8 secs (22-35.6); PROTHROMBIN TIME 10.1 secs (10.8-13.4)
[2024-02-27 19:58] LABS: ALANINE AMINOTRANSFERASE 48 U/L (12-78); ALBUMIN 4.1 g/dL (3.4-5.0); ALKALINE PHOSPHATASE 44 U/L (50-136); ASPARTATE AMINOTRANSFERASE 28 U/L (15-37); BILIRUBIN,DIRECT 0.1 mg/dL (0.0-0.3); LIPASE 81 U/L (16-77); TOTAL BILIRUBIN 0.5 mg/dL (0.0-1.0); TOTAL PROTEIN, SERUM 7.3 g/dL (6.4-8.2)
[2024-02-27 20:01] VITALS: BP 125/81; PULSE 71; RESP 17; TEMP 98; O2SAT 97
== END 2024-02-27 22:34 | disposition home or self-care (01) ==
LOC: MED 18:38
DX: R42 Dizziness and giddiness (principal); I10 Essential (primary) hypertension; Z79.899 Other long term (current) drug therapy
CPT/HCPCS: 36415; 71045; 80048; 80076; 83690; 83880; 84484; 85025; 85610; 85730; 93005; 96360; 99285; J7030; Q0092

== ENCOUNTER 2024-02-29 02:00 | Emergency (ER) | payer MEDICAID ==
[~2024-02-29] VITALS: Ht 175.3 cm; Wt 77.1 kg
[2024-02-29 02:07] VITALS: BP 140/98; PULSE 79; RESP 18; TEMP 98.1; O2SAT 98
[2024-02-29] MEDS: NACL 0.9% 1,000 ML IV ONE (05:36)
[2024-02-29 06:09] VITALS: BP 138/98; PULSE 78; RESP 17; TEMP 97.8; O2SAT 98
== END 2024-02-29 06:09 | disposition home or self-care (01) ==
LOC: MED 02:00
DX: R42 Dizziness and giddiness (principal); E86.0 Dehydration; I10 Essential (primary) hypertension; Z79.899 Other long term (current) drug therapy; Z79.82 Long term (current) use of aspirin
CPT/HCPCS: 96360; 99283; J7030